=== PATIENT | male | born 1995 | race Caucasian/White ===

== ENCOUNTER 2017-02-21 02:30 | Emergency (ER) | payer BC, OTHER ==
[~2017-02-21] VITALS: Ht 177.8 cm; Wt 80.3 kg
[2017-02-21 02:48] VITALS: BP 120/71
--- NOTE | 2017-02-21 04:31 | NUR ---
PATIENT PRESENTS TO ED WITH C/O DIZZINESS AND BLURRY VISION WITH HEADACHE X 3 HOURS. . PT DENIES N/V/D; SKIN IS PINK/WARM/DRY; AAOX4 WITH EVEN AND STEADY GAIT; LUNGS CLEAR BL; HR EVEN AND REGULAR; PT DENIES ANY FEVER, CP, SOB, OR COUGH AT THIS TIME; PATIENT STATES PAIN OF 9/10 AT THIS TIME; VSS; PATIENT POSITIONED FOR COMFORT; HOB ELEVATED; BEDRAILS UP X2; BED DOWN. ER MD MADE AWARE OF PT STATUS.
[2017-02-21] MEDS: SUMAtriptan 6 MG/0.5 ML VIAL SUBQ ONE (06:15)
[2017-02-21] MEDS: KETOROLAC 60 MG/2 ML VIAL IM ONE (06:15)
--- NOTE | 2017-02-21 07:30 | NUR ---
ASSUMED PATIENT CARE, CONCUR WITH PREVIOUS ASSESSMENT. SEEN AND RE-EVALUATED BY PROVIDER.
--- NOTE | 2017-02-21 07:36 | NUR ---
DISPO AND MEDICAL DECISION MAKING, DC HOME WITH INSTRUCTIONS AND PRESCRIPTIONS, PATIENT VERBALIZING IMPROVEMENT IN SYMPTOMS. VSWNL, NO DISTRESS.
[2017-02-21 07:37] VITALS: BP 115/47
== END 2017-02-21 07:36 | disposition home or self-care (01) ==
LOC: MED 02:30
DX: R51 Headache (principal)
CPT/HCPCS: 82948; 96372; 99284; J1885; J3030

== ENCOUNTER 2018-03-07 11:00 | Inpatient (IN) | payer BC ==
[~2018-03-07] VITALS: Ht 177.8 cm; Wt 86.2 kg
[2018-03-07 11:08] VITALS: BP 133/80
--- NOTE | 2018-03-07 11:08 | NUR ---
PT AMBULATED TO ER BED 11
--- NOTE | 2018-03-07 11:15 | NUR ---
22Y/M C/O RLQ AB PAIN SINCE LAST NIGHT, + VOMITING LAST NIGHT, + DIZZINESSS, - DIARRHEA, LBM 03/06/17 [facility]: NONE RX: [facility] AT 6AM
--- NOTE | 2018-03-07 11:36 | NUR ---
Patient being evaluated by dr. collazo at bedside.
--- NOTE | 2018-03-07 11:46 | NUR ---
lab at bedside
--- NOTE | 2018-03-07 11:52 | NUR ---
PT TAKEN TO CT
[2018-03-07 11:56] LABS: BASOPHILS % (AUTO) 0.3 % (0.0-2.0); EOSINOPHILS % (AUTO) 0.1 % (0.0-4.0); HEMATOCRIT 45.6 % (36-52); LYMPHOCYTES # (AUTO) 1.9 K/uL (2.0-11.5); MEAN CORPUSCULAR HEMOGLOBIN 30 pg (27-31); MEAN CORPUSCULAR HGB CONC 33 g/dL (33-37); MEAN CORPUSCULAR VOLUME 91.6 fL (80-94); MONOCYTES # (AUTO) 1.3 K/uL (0.8-1.0); MONOCYTES % (AUTO) 9.4 % (1.7-9.3); NEUTROPHILS # (AUTO) 10.3 K/uL (1.8-7.7); NEUTROPHILS % (AUTO) 76.2 % (42.2-75.2); PLATELET COUNT (AUTO) 175 K/uL (140-450); RED BLOOD CELL COUNT(AUTO) 4.98 MIL/uL (4.20-6.10); WHITE BLOOD COUNT (AUTO) 13.5 K/uL (4.5-11.0)
--- NOTE | 2018-03-07 12:02 | NUR ---
PT BACK FROM CT
[2018-03-07 12:10] LABS: ALBUMIN 4.3 g/dL (3.4-5.0); ANION GAP 12.3 (8-16); CARBON DIOXIDE 29.6 mmol/L (21-32); CREATININE 0.8 mg/dL (0.7-1.3); POTASSIUM 3.9 mmol/L (3.5-5.1); TOTAL BILIRUBIN 0.8 mg/dL (0.0-1.0)
[2018-03-07 12:28] LABS: APPEARANCE,URINE CLEAR (CLEAR); BILIRUBIN,URINE NEGATIVE (NEGATIVE); BLOOD, URINE TRACE-I (NEGATIVE); COLOR,URINE YELLOW (YELLOW); LEUKOCYTE ESTERASE ,URINE NEGATIVE (NEGATIVE); NITRITE, URINE NEGATIVE (NEGATIVE); UGLUCOSE NEGATIVE (NEGATIVE)
[2018-03-07 12:34] LABS: RBC,URINE 0-5 (RARE) /HPF (0-5); WBC,URINE 0-5 (RARE) /HPF (0-5)
[2018-03-07] MEDS ORDERED: PIPERACILLIN/TAZOBACTAM 3.375 GM in DEXTROSE 5% 50 ML IV ONE (13:15)
[2018-03-07] MEDS ORDERED: ONDANSETRON 4 MG/2 ML VIAL IVP PRN ×2 (13:30→19:50)
[2018-03-07] MEDS ORDERED: ACETAMINOPHEN 325 MG TAB PO PRN (13:30)
[2018-03-07] MEDS ORDERED: ZOLPIDEM 5 MG TAB PO PRN (13:30)
[2018-03-07] MEDS ORDERED: NACL 0.9% 1,000 ML IV SCH (13:30)
[2018-03-07] MEDS ORDERED: PIPERACILLIN/TAZOBACTAM 3.375 GM VIAL IV ONE (13:31)
[2018-03-07] MEDS ORDERED: KETOROLAC 30 MG/ML VIAL IVP ONE (13:40)
--- NOTE | 2018-03-07 14:14 | NUR ---
Patient will be admitted to care of . Admited to med surg. Will go to room 119-a. Belongings list completed. Report to jose sainz.
[2018-03-07] MEDS ORDERED: KETOROLAC 30 MG/ML VIAL IM PRN (14:15)
[2018-03-07 14:30] VITALS: BP 118/62
[2018-03-07] MEDS ORDERED: LACTOBACILLUS RHAMNOSUS GG 1 EACH CAP PO SCH (14:30)
--- NOTE | 2018-03-07 14:30 | NUR ---
RECEIVED BEDSIDE REPORT FROM ANTHONY. PT STABLE, AWAKE AND ALERT. MOTHER AT THE BEDSIDE. DENIES PAIN. NO SIGNS OF DISTRESS NOTED. NO EPISODES OF VOMITING/NAUSEA NOTED. ORIENTED TO ROOM AND UNIT. CALL LIGHT WITHIN REACH. BED IN LOW POSITION. SAFETY MEASURES IN PLACE. PLAN OF CARE REVIEWED.
[2018-03-07 14:37] LABS: BARBITURATE, URINE NEG. ng/ml (NEG <=200); BENZODIAZEPINE, URINE NEG. ng/mL (NEG <=200); CANNABINOID, URINE NEG. ng/mL (NEG <=50); COCAINE, URINE NEG. ng/mL (NEG <=300); OPIATE, URINE NEG. ng/mL (NEG <=2000); PHENCYCLIDINE SCREEN,URINE NEG. ng/mL (NEG <=25)
[2018-03-07 14:51] LABS: PROTHROMBIN TIME 10.3 secs (10.8-13.4)
[2018-03-07 14:52] LABS: PHOSPHORUS 4.4 mg/dL (2.5-4.9)
[2018-03-07 14:53] LABS: FREE T4 (FREE THYROXINE) 0.82 ng/dL (0.76-1.46); THYROID STIMULATING HORMONE 1.86 uIU/mL (0.34-3.74)
[2018-03-07] MEDS: DEXT 5% / NACL 0.45% 1,000 ML IV SCH ×2 (15:00→23:00)
[2018-03-07] MEDS ORDERED: DOCU-299 PO (15:18)
[2018-03-07] MEDS ORDERED: ACET-9529 PO (15:18)
--- NOTE | 2018-03-07 16:19 | NUR ---
PT TAKEN TO OR IN BED ACCOMPANIED BY MOM, REPORT GIVEN TO OR NURSE.
--- NOTE | 2018-03-07 16:30 | NUR ---
PT RETURNED FROM OR BY ALICIA. LAP APPENDECTOMY MOVED TO 1800.
[2018-03-07] MEDS ORDERED: PIPER/TAZO 3.375GM/D5W PREMIX 50 ML IV SCH (18:00)
[2018-03-07] MEDS ORDERED: PIPERACILLIN/TAZOBACTAM 3.375 GM in DEXTROSE 5% 50 ML IV SCH (18:00)
[2018-03-07] MEDS ORDERED: SEVOFLURANE 250 ML BTL INH ONE (19:00)
[2018-03-07] MEDS ORDERED: SUCCINYLCHOLINE CHLORIDE 200 MG/10 ML VIAL IVP ONE (19:00)
[2018-03-07] MEDS ORDERED: PROPOFOL 200 MG/20 ML VIAL IV ONE (19:00)
[2018-03-07] MEDS ORDERED: DEXAMETHASONE 4 MG/ML VIAL ONE (19:00)
[2018-03-07] MEDS ORDERED: ONDANSETRON 4 MG/2 ML VIAL ONE (19:00)
[2018-03-07] MEDS ORDERED: KETOROLAC 30 MG/ML VIAL ONE (19:00)
[2018-03-07] MEDS ORDERED: ROCURONIUM 50 MG/5 ML VIAL IV ONE (19:00)
[2018-03-07] MEDS ORDERED: BUPIVACAINE-MPF/EPI 0.25% 30 ML VIAL INJ ONE (19:11)
[2018-03-07] MEDS ORDERED: MIDAZOLAM 2 MG/2 ML VIAL ONE (19:11)
[2018-03-07] MEDS ORDERED: fentaNYL 0.05 MG/ML VIAL ONE (19:12)
[2018-03-07] MEDS ORDERED: MEPERIDINE 50 MG/ML SYR ONE (19:12)
--- NOTE | 2018-03-07 19:30 | NUR ---
RECEIVED REPORT FROM DAY SHIFT NURSE. PT CURRENTLY IN OR.
--- NOTE | 2018-03-07 19:30 | NUR ---
ENDORSED PT TO PM NURSE FOR CONTINUITY OF CARE. PT CURRENTLY IN THE OR.
[2018-03-07] MEDS ORDERED: diphenhydrAMINE 50 MG/ML VIAL IVP PRN (19:50)
[2018-03-07] MEDS ORDERED: MEPERIDINE 25 MG/ML SYR IVP PRN (19:50)
[2018-03-07] MEDS ORDERED: HYDROmorphone 1 MG/ML AMP IVP PRN (19:50)
[2018-03-07] MEDS ORDERED: MORPHINE SULFATE 4 MG/ML SYR IVP PRN (20:20)
[2018-03-07] MEDS ORDERED: SIMETHICONE 80 MG TAB.CHEW PO PRN (20:20)
[2018-03-07 21:05] VITALS: BP 135/76
--- NOTE | 2018-03-07 21:05 | NUR ---
PT ARRIVED BACK ON UNIT WITH OR NURSE. NO SIGNS OR SYMPTOMS OF DISTRESS. PT FAMILY AT BEDSIDE. NO C/O PAIN AT THIS TIME. WILL CONTINUE TO MONITOR.
[2018-03-07 21:20] VITALS: BP 132/68
[2018-03-07] MEDS: DOCUSATE SODIUM 100 MG GELCAP PO SCH (21:20)
--- NOTE | 2018-03-07 21:20 | NUR ---
ADMINISTERED SCHEDULED MEDICATION. PT TOLERATED WELL. NO SIGNS OR SYMPTOMS OF DISTRESS. WILL CONTINUE TO MONITOR. PT FAMILY AT BEDSIDE. NO C/O PAIN AT THIS TIME.
[2018-03-07] MEDS: LACTATED RINGERS 1,000 ML IV SCH (21:26)
[2018-03-07 21:35] VITALS: BP 122/67
[2018-03-07 21:50] VITALS: BP 116/62
--- NOTE | 2018-03-07 23:20 | NUR ---
PT ASLEEP IN BED. NO SIGNS OR SYMPTOMS OF DISTRESS. WILL CONTINUE TO MONITOR.
[2018-03-08] VITALS: BP 107/55
[2018-03-08] MEDS: LACTATED RINGERS 1,000 ML IV SCH ×2 (04:07→12:27)
[2018-03-08] MEDS: DEXT 5% / NACL 0.45% 1,000 ML IV SCH (04:33)
--- NOTE | 2018-03-08 04:33 | NUR ---
NEW BAG OF IVF STARTED. PT REQUESTING TO REMOVE SCD'S. EDUCATED PT ON PURPOSE OF SCD'S AND WHY THEY ARE IMPORTANT TO WEAR. PT VERBALIZED UNDERSTANDING. PT STILL WISHED TO HAVE SCD'S TAKEN OFF AND STATED HE WOULD PUT THEM BACK ON IN A COUPLE OF HOURS.
[2018-03-08 06:20] LABS: BASOPHILS % (AUTO) 0.1 % (0.0-2.0); HEMATOCRIT 42.3 % (36-52); HEMOGLOBIN 13.9 g/dL (12.0-18.0); LYMPHOCYTES # (AUTO) 0.9 K/uL (2.0-11.5); LYMPHOCYTES % (AUTO) 6.5 % (20.5-51.1); MEAN CORPUSCULAR HEMOGLOBIN 30 pg (27-31); MEAN CORPUSCULAR HGB CONC 33 g/dL (33-37); MEAN CORPUSCULAR VOLUME 92.8 fL (80-94); MONOCYTES # (AUTO) 0.7 K/uL (0.8-1.0); NEUTROPHILS # (AUTO) 11.9 K/uL (1.8-7.7); NEUTROPHILS % (AUTO) 88.4 % (42.2-75.2); PLATELET COUNT (AUTO) 184 K/uL (140-450); RED BLOOD CELL COUNT(AUTO) 4.56 MIL/uL (4.20-6.10); RED CELL DISTRIBUTION WIDTH 13.2 % (11.6-13.7); WHITE BLOOD COUNT (AUTO) 13.5 K/uL (4.5-11.0)
[2018-03-08 06:30] LABS: ANION GAP 10.9 (8-16); CARBON DIOXIDE 29.6 mmol/L (21-32); CREATININE 0.8 mg/dL (0.7-1.3); POTASSIUM 4.5 mmol/L (3.5-5.1)
[2018-03-08 06:37] LABS: CHOL/HDL RATIO 3.1 (1-4.5); PHOSPHORUS 3.2 mg/dL (2.5-4.9)
--- NOTE | 2018-03-08 07:13 | NUR ---
ENDORSED PT TO DAY SHIFT NURSE FOR CONTINUITY OF CARE. PT IN STABLE CONDITION.
--- NOTE | 2018-03-08 07:14 | NUR ---
RECEIVED BEDSIDE REPORT FROM WARP BLEACHING VAT TENDER NURSE. PATIENT AAOX4. PATIENT AMBULATORY AND CONTINENT. URINAL AT BEDSIDE. PATIENT ON ROOM AIR, NO DISTRESS NOTED. PATIENT WITH INCENTIVE SPIROMETER. EDUCATED ON IMPORTANCE OF USING IT AND VERBALIZED UNDERSTANDING. IV ON R AC 20 G INFUSING D5 1/2 NS AT 125. IV CLEAN DRY AND INTACT. SKIN INTACT, EXCEPT FOR 3 ABDOMINAL INCISIONS. DRESSINGS DRY AND INTACT. BED IN LOW POSITION, CALL LIGHT WITHIN REACH. WILL CONTINUE TO MONITOR.
[2018-03-08 08:00] VITALS: BP 117/59
--- NOTE | 2018-03-08 08:15 | NUR ---
PATIENT HAS BEEN SCREENED AND CATEGORIZED LOW NUTRITION RISK. PATIENT WILL BE SEEN WITHIN 7 DAYS OF ADMISSION. 03/14/[address]
[2018-03-08] MEDS: DOCUSATE SODIUM 100 MG GELCAP PO SCH ×2 (09:12→21:10)
[2018-03-08] MEDS: LACTOBACILLUS RHAMNOSUS GG 1 EACH CAP PO SCH (09:13)
[2018-03-08] MEDS ORDERED: MORPHINE SULFATE 4 MG/ML SYR IVP PRN (10:45)
[2018-03-08] MEDS: NACL 0.9% 500 ML IV SCH (11:15)
--- NOTE | 2018-03-08 13:28 | NUR ---
SAID OK TO CONTINUE INFUSING NS AT 10 TKO. NO NEED TO INFUSE LR.
--- NOTE | 2018-03-08 13:52 | NUR ---
PATIENT AMBULATING WITH MOTHER BY HIS SIDE. PATIENT HAS NO COMPLAINTS AT THIS TIME. WILL CONTINUE TO MONITOR.
[2018-03-08 16:00] VITALS: BP 115/70
[2018-03-08] MEDS: HYDROcodone/APAP 7.5/325 MG 1 TAB PO PRN ×2 (16:01→22:12)
--- NOTE | 2018-03-08 19:19 | NUR ---
GAVE BEDSIDE REPORT TO EDGE ROLLER NURSE. PATIENT ENDORSED IN STABLE CONDITION.
--- NOTE | 2018-03-08 19:19 | NUR ---
RECEIVED REPORT FROM DAY SHIFT FROM DAY SHIFT NURSE, AT PT BEDSIDE. FAMILY IS CURRENTLY AT BEDSIDE. PT IS AAOX4. PT IS ON RA WITH RESPIRATIONS EVEN AND UNLABORED. IV ACCESS IN R AC 20G, PATENT AND INTACT. PT SKIN IS INTACT. NO C/O PAIN AT THIS TIME. BED IS LOCKED, LOW POSITION WITH SIDE RAILS UP X2. CALL LIGHT IS WITHIN REACH. BOARD UPDATED. WILL CONTINUE TO MONITOR.
--- NOTE | 2018-03-08 20:19 | NUR ---
PT AMBULATING HALLWAY WITH FAMILY MEMBER. NO SIGNS OR SYMPTOMS OF DISTRESS. WILL CONTINUE TO MONITOR.
--- NOTE | 2018-03-08 21:11 | NUR ---
ADMINISTERED SCHEDULED MEDICATION. PT TOLERATED WELL. NO C/O PAIN AT THIS TIME. ALL OTHER NEEDS ARE MET AT THIS TIME. WILL CONTINUE TO MONITOR.
--- NOTE | 2018-03-08 22:12 | NUR ---
PT C/O PAIN, NORCO GIVEN. PT TOLERATED WELL. NO SIGNS OR SYMPTOMS OF DISTRESS. WILL CONTINUE TO MONITOR.
--- NOTE | 2018-03-08 23:12 | NUR ---
PT IN BED WATCHING TV. PT HAVING NO MORE PAIN. NO SIGNS OR SYMPTOMS OF DISTRESS. WILL CONTINUE TO MONITOR.
[2018-03-09] VITALS: BP 117/61
--- NOTE | 2018-03-09 04:03 | NUR ---
PT ASLEEP IN BED. NO SIGNS OR SYMPTOMS OF DISTRESS. WILL CONTINUE TO MONITOR.
[2018-03-09 07:02] LABS: BASOPHILS % (AUTO) 0.1 % (0.0-2.0); EOSINOPHILS % (AUTO) 0.6 % (0.0-4.0); HEMATOCRIT 41.2 % (36-52); HEMOGLOBIN 13.3 g/dL (12.0-18.0); LYMPHOCYTES % (AUTO) 41.5 % (20.5-51.1); MEAN CORPUSCULAR HEMOGLOBIN 30 pg (27-31); MEAN CORPUSCULAR HGB CONC 32 g/dL (33-37); MEAN CORPUSCULAR VOLUME 93.6 fL (80-94); MONOCYTES # (AUTO) 0.7 K/uL (0.8-1.0); MONOCYTES % (AUTO) 9.8 % (1.7-9.3); NEUTROPHILS # (AUTO) 3.5 K/uL (1.8-7.7); PLATELET COUNT (AUTO) 177 K/uL (140-450); RED CELL DISTRIBUTION WIDTH 13.1 % (11.6-13.7); WHITE BLOOD COUNT (AUTO) 7.3 K/uL (4.5-11.0)
--- NOTE | 2018-03-09 07:13 | NUR ---
ENDORSED PT TO DAY SHIFT NURSE FOR CONTINUITY OF CARE. PT IN STABLE CONDITION.
[2018-03-09 07:18] LABS: CARBON DIOXIDE 29.2 mmol/L (21-32); CREATININE 0.8 mg/dL (0.7-1.3); POTASSIUM 4.2 mmol/L (3.5-5.1)
[2018-03-09 08:00] VITALS: BP 112/58
[2018-03-09] MEDS: DOCUSATE SODIUM 100 MG GELCAP PO SCH (11:16)
[2018-03-09] MEDS: LACTOBACILLUS RHAMNOSUS GG 1 EACH CAP PO SCH (11:17)
[2018-03-09] MEDS: NACL 0.9% 500 ML IV SCH (11:17)
[2018-03-09] MEDS: HYDROcodone/APAP 7.5/325 MG 1 TAB PO PRN (11:23)
[2018-03-09] MEDS ORDERED: INFLUENZA VIRUS VACCINE QUAD 0.5 ML SYR IMVAC PRN (13:00)
== END 2018-03-09 13:12 | disposition home or self-care (01) | DRG 343 ==
LOC: MED 11:00 → MTU 13:30
PROVIDERS: ADMIT General Practice; ATTEND General Practice
PROC: 0DTJ4ZZ Resection of Appendix, Percutaneous Endoscopic Approach (ICD-10-PCS; principal; 2018-03-08)
PROC: 3E0234Z Introduction of Serum, Toxoid and Vaccine into Muscle, Percutaneous Approach (ICD-10-PCS; 2018-03-09)
DX: K35.80 Unspecified acute appendicitis (principal); E66.3 Overweight; Z68.27 Body mass index [BMI] 27.0-27.9, adult; E78.5 Hyperlipidemia, unspecified; Z23 Encounter for immunization
CPT/HCPCS: 36415; 71045; 80048; 80053; 80305; 81001; 82150; 83036; 83690; 83735; 83880; 84100; 84439; 84443; 84484; 85025; 85610; 85730; 87070; 87075; 87081; 87186; 87205; 88304; 90658; 93005; 96365; 96375; 99285; J0330; J1100; J1885; J2175; J2250; J2405; J2543; J2704; J3010; J3490; J7030; Q0092